=== PATIENT | male | born 1945 | race Caucasian/White ===

== ENCOUNTER → 2018-06-06 08:40 | Outpatient (CLI) | payer MEDICARE, OTHER, SELFPAY ==
[2018-06-07 10:17] LABS: PSA, Diagnostic 21.6 ng/ml (0-6.5)
== END ==
PROVIDERS: PCP Emergency Medicine; Visit Provider Urology
DX: C61 Malignant neoplasm of prostate (principal)
CPT/HCPCS: 36415; 84153

== ENCOUNTER → 2018-06-15 08:30 | Outpatient (CLI) | payer MEDICARE, OTHER, SELFPAY | PROVIDERS: PCP Emergency Medicine; Visit Provider Urology | DX: C61 Malignant neoplasm of prostate (principal) | CPT/HCPCS: 99213 ==

== ENCOUNTER 2019-03-04 10:01 | Outpatient (CLI) | payer MEDICARE, SELFPAY ==
[2019-03-05 10:08] LABS: PSA, Diagnostic 26.2 ng/ml (0-6.5)
== END 2019-03-04 10:21 ==
PROVIDERS: PCP Emergency Medicine; Visit Provider Urology
DX: C61 Malignant neoplasm of prostate (principal)
CPT/HCPCS: 36415; 84153

== ENCOUNTER → 2019-03-19 07:57 | Outpatient (BNVA) | payer MEDICARE, OTHER, SELFPAY | PROVIDERS: PCP Emergency Medicine; Visit Provider Urology | DX: C61 Malignant neoplasm of prostate (principal); R97.20 Elevated prostate specific antigen [PSA] | CPT/HCPCS: 99213 ==

== ENCOUNTER → 2019-04-26 10:44 | Outpatient (BNVA) | payer MEDICARE, OTHER, SELFPAY | PROVIDERS: PCP Emergency Medicine; Referring Provider Emergency Medicine; Visit Provider Physical Therapy Assistant | DX: Z12.11 Encounter for screening for malignant neoplasm of colon (principal); Z80.0 Family history of malignant neoplasm of digestive organs; I10 Essential (primary) hypertension ==

== ENCOUNTER 2019-05-10 10:02 | Day surgery (SDC) | payer MEDICARE, OTHER, SELFPAY ==
[2019-05-10 10:33] VITALS: BP 171/91; PULSE 66; RESP 16; TEMP 36.3; O2SAT 96
[2019-05-10] MEDS: Lactated Ringers 1,000 ML 80 ML IV (10:53)
--- NOTE | 2019-05-10 11:42 | W.PM.DSUDISC ---
Discharge Plan Disposition Patient Disposition: HOME Condition: Good Discharge Details Attending Provider: Sharda Whalen Primary Care Provider: Tom Reeves Home Meds and New Rx's Prescriptions: Continued multivitamin [One Daily] 1 EACH tablet 1 tab PO DAILY RF: 0 aspirin [Ecotrin] 325 MG tablet,delayed release (DR/EC) 1 tab PO QAM RF: 0 sildenafil [Viagra] 100 MG tablet 100 mg PO PRN MDD 100 mg Qty: 24 RF: 3 Eliquis 5 MG tablet 5 mg PO BID Qty: 180 RF: 3 losartan 50 MG tablet 50 mg PO DAILY Qty: 90 RF: 3 amlodipine 10 MG tablet 0.5 tab PO DAILY Qty: 90 RF: 3 levothyroxine [Synthroid] 125 MCG tablet 1 tab PO DAILY Qty: 90 RF: 4 rosuvastatin [Crestor] 20 MG tablet 1 tab PO DAILY Qty: 90 RF: 4 metoprolol tartrate 25 MG tablet 25 mg PO BID Qty: 180 RF: 4 hydrochlorothiazide 25 mg tablet 25 mg PO DAILY Qty: 90 RF: 3 omeprazole 20 mg capsule,delayed release(DR/EC) 20 mg PO DAILY Qty: 90 RF: 3 Discontinued polyethylene glycol 3350 17 gram/dose powder 238 g PO ONCE Qty: 238 RF: 0 bisacodyl [Dulcolax (bisacodyl)] 5 mg tablet,delayed release (DR/EC) 5 mg PO ONCE Qty: 4 RF: 0 Discharge Instructions Additional Instructions: Your colonoscopy was normal Okay to resume Eliquis You can consider a colonoscopy in the future for any symptoms of blood in the stool, change in bowel habits or abdominal pain. Routine screening is not needed. Activity:: Activity as Tolerated Diet:: As Tolerated Discharge Orders Discharge Orders: Discharge Order (Routine); Ordered 05/10/19 Ordered By: Sharda Whalen DS: Diagnosis Discharge Diagnosis (1) Normal colonoscopy: Start date: 05/10/19 Start time: 11:43 Status: Acute
[2019-05-10 12:13] VITALS: BP 168/78; PULSE 62; RESP 16; TEMP 36.3; O2SAT 97
--- NOTE | 2019-05-10 12:50 | COLE_ITS ---
DATE OF PROCEDURE: May 10, 2019 PREOPERATIVE DIAGNOSIS: Family history of colon cancer. POSTOPERATIVE DIAGNOSIS: Normal colon. PROCEDURE: Colonoscopy. SURGEON: Sharda Whalen M.D. ANESTHESIA: General. INDICATIONS: This is a 73-year-old man whose last colonoscopy in 2001 was normal. His mother was tr eated for colon cancer at age 89. He is asymptomatic. PROCEDURE: The patient was placed in the left Romero' position. Propofol was titrated to sedation. D igital rectal examination revealed no abnormalities. The scope was advanced to the cecum with some a bdominal pressure required. The ileocecal valve and appendiceal orifice were clearly identified. Hi s prep was excellent. The scope was slowly withdrawn with no abnormalities seen within the ascending , transverse, descending, sigmoid colon or rectum, including on retroflex view. He tolerated the pro cedure well and was stable to recovery. He was advised he could resume his Eliquis since no biopsies were taken. He does not need routine screening, but can consider evaluation should any symptoms portia se. cc: Tom Reeves D.O.
== END 2019-05-10 12:40 | disposition home or self-care (01) ==
PROVIDERS: PCP Emergency Medicine; Visit Provider Surgery
PROC: 0DJD8ZZ Inspection of Lower Intestinal Tract, Via Natural or Artificial Opening Endoscopic (ICD-10-PCS; CPT 45378; principal; 2019-05-10 11:15)
DX: Z12.11 Encounter for screening for malignant neoplasm of colon (principal); C61 Malignant neoplasm of prostate; Z80.0 Family history of malignant neoplasm of digestive organs; I10 Essential (primary) hypertension; I48.0 Paroxysmal atrial fibrillation; Z79.01 Long term (current) use of anticoagulants
CPT/HCPCS: G0105

== ENCOUNTER 2019-05-21 09:37 | Outpatient (CLI) | payer MEDICARE, OTHER, SELFPAY ==
[2019-05-21 11:38] LABS: Hemoglobin A1C 6.1 % (4.5-6.2)
[2019-05-21 12:09] LABS: TSH 1.02 uIU/mL (0.36-3.74)
== END 2019-05-21 09:57 ==
PROVIDERS: PCP Emergency Medicine; Visit Provider Emergency Medicine
DX: E03.9 Hypothyroidism, unspecified (principal); E11.9 Type 2 diabetes mellitus without complications
CPT/HCPCS: 36415; 83036; 84443

== ENCOUNTER 2019-06-13 10:14 | Outpatient (CLI) | payer MEDICARE, OTHER, SELFPAY ==
[2019-06-14 10:43] LABS: PSA, Diagnostic 25.4 ng/ml (0-6.5)
== END 2019-06-13 10:34 ==
PROVIDERS: PCP Emergency Medicine; Visit Provider Urology
DX: C61 Malignant neoplasm of prostate (principal)
CPT/HCPCS: 36415; 84153

== ENCOUNTER → 2019-06-20 08:48 | Outpatient (BNVA) | payer MEDICARE, OTHER, SELFPAY | PROVIDERS: PCP Emergency Medicine; Visit Provider Urology | DX: C61 Malignant neoplasm of prostate (principal) | CPT/HCPCS: 99213 ==

== ENCOUNTER 2020-04-02 04:12 | Outpatient (CLI) | payer MEDICARE, OTHER, SELFPAY ==
[2020-04-02 09:41] LABS: Hemoglobin A1C 6.2 % (3.8-5.6)
[2020-04-02 10:17] LABS: Anion Gap 8.9 mmol/L (3-11); BUN 15 mg/dL (7-18); CO2 26.1 mmol/L (21.0-32.0); CREATININE 1.17 mg/dL (0.70-1.30); Calcium 9.1 mg/dL (8.5-10.1); Calculated LDL 85 mg/dL (<100); Chloride 106 mmol/L (98-107); Cholesterol 179 mg/dL (<200); Glucose 135 mg/dL (74-106); HDL Cholesterol 69 mg/dL (40-60); Potassium 4.1 mmol/L (3.5-5.1); Sodium 141 mmol/L (136-145); TSH 1.65 uIU/mL (0.36-3.74); Triglyceride 126 mg/dL (<150)
[2020-04-03 09:33] LABS: PSA, Diagnostic 24.9 ng/mL (0.0-6.5)
== END 2020-04-02 04:32 ==
PROVIDERS: Urology; PCP Emergency Medicine; Visit Provider Emergency Medicine
DX: I10 Essential (primary) hypertension (principal); E03.9 Hypothyroidism, unspecified; E11.9 Type 2 diabetes mellitus without complications; C61 Malignant neoplasm of prostate
CPT/HCPCS: 36415; 80048; 80061; 83036; 84153; 84443